=== PATIENT | male | born 1980 | race African-American/Black ===

== ENCOUNTER 2018-04-17 19:14 | Emergency (ER) | payer OTHER ==
[~2018-04-17] VITALS: Ht 203.2 cm; Wt 124.6 kg
[2018-04-17] MEDS ORDERED: AMOXICILLIN500 MG PO (19:56)
[2018-04-17 20:11] VITALS: BP 125/77
== END 2018-04-17 20:11 | disposition home or self-care (01) ==
LOC: EME 19:14
DX: H66.92 Otitis media, unspecified, left ear (principal); H60.92 Unspecified otitis externa, left ear; F17.200 Nicotine dependence, unspecified, uncomplicated
CPT/HCPCS: 99281; 99284